=== PATIENT | male | born 1965 | race African-American/Black ===

== ENCOUNTER 2017-08-06 07:41 | Day surgery (SDC) | payer OTHER ==
[2017-08-06] VITALS (8 sets, daily range): BP systolic 109–139; BP diastolic 65–92; PULSE 60–74; RESP 17–20; Ht 175.3 cm; Wt 108.0 kg
[~2017-08-06] VITALS: Ht 175.3 cm; Wt 108.0 kg
[~2017-08-06 07:41] MED LIST: CEFAZOLIN 1 GM INJ ONE; CEFAZOLIN 2 GM/50 ML (PMX) 50 ML IVPB SCH; SOD CHLORIDE 0.9% 1,000 ML IV SCH
[2017-08-06] MEDS ORDERED: OXYC30TA PO (08:47)
[2017-08-06] MEDS ORDERED: IBUP400T22 PO (08:47)
[2017-08-06] MEDS ORDERED: BUPIVACAINE 0.25% (MPF) 30 ML INJ ONE (09:14)
[2017-08-06] MEDS ORDERED: ROCURONIUM 50 MG INJ ONE (10:08)
[2017-08-06] MEDS ORDERED: LIDOCAINE 2% (SDV) 5 ML INJ ONE (10:08)
[2017-08-06] MEDS ORDERED: MIDAZOLAM 1 MG/ML 2 ML INJ ONE (10:08)
[2017-08-06] MEDS ORDERED: FENTAnyl 50 MCG/ML VIAL ONE (10:08)
[2017-08-06] MEDS ORDERED: PROPOFOL 20 ML ONE (10:08)
[2017-08-06] MEDS ORDERED: SUCCINYLCHOLINE CHLORIDE 100 MG/5 ML SYG IV ONE (10:08)
[2017-08-06] MEDS ORDERED: POLYMYXIN/BACITRACIN 1L IRRIG ONE (10:18)
[2017-08-06] MEDS ORDERED: DEXAMETHASONE 4 MG/ML 1 ML INJ ONE (10:25)
[2017-08-06] MEDS ORDERED: ONDANSETRON 4 MG INJ ONE (10:25)
[2017-08-06] MEDS ORDERED: OXYCODONE/ACETAMINOPHEN (5/325) TAB PO PRN ×2 (10:30)
[2017-08-06] MEDS ORDERED: HYDROmorphONE (0.2 MG/ML) 10ML SYG IV PRN (10:30)
[2017-08-06] MEDS ORDERED: ONDANSETRON 4 MG INJ IV PRN (10:30)
[2017-08-06] MEDS ORDERED: MEPERIDINE 25 MG INJ IV PRN (10:30)
[2017-08-06] MEDS ORDERED: FENTAnyl 50 MCG/ML VIAL IV PRN (10:30)
[2017-08-06] MEDS ORDERED: DIPHENHYDRAMINE 50 MG INJ IV PRN (10:30)
[2017-08-06] MEDS ORDERED: POLYMYXIN/BACITRACIN 1L IRRIG IRR ONE (10:35)
[2017-08-06] MEDS ORDERED: BUPIVACAINE 0.25% (MPF) 30 ML INJ INJ ONE (10:35)
[2017-08-06] MEDS ORDERED: KETOROLAC 30 MG INJ ONE (11:01)
--- NOTE | 2017-08-06 11:10 | OPR ---
Date/Time of Note Date/Time of Note DATE: 08/06/17 TIME: 11:07 Operative Report Procedure Date: Aug 06, 2017 Preoperative Diagnosis right inguinal hernia Postoperative Diagnosis same Operation Performed 1. open right incarcerated inguinal hernia repair with ultrapro large hernia system mesh 2. therapeutic injection of subcutaneous marcaine cpt code 29689 Surgeon: Shemar WILEY Anesthesia Type: general Estimated Blood Loss: 0 - 10 ml's Specimen: none Grafts/Implants ultrapro hernia system mesh large Complications: no Indications Large right incarcerated inguinal hernia. He requests surgical repair. Risks alternatives benefits and percent were discussed the patient. Patient expresses understanding and consents to the operation. Procedure Description To the OR and prepped and draped in usual sterile fashion. Surgical timeout is performed. IV antibiotics given. Right inguinal oblique incision is made with a 10 blade. Dissection cautery was carried onto the extremity fascia. This is open with a 15 blade. The external oblique fascia incision is extended medially inferiorly lateral superiorly with Metzenbaum scissors. Cord structures identified and encircled with a Estelita drain. Incarcerated indirect hernia is reduced manually. This hernia defect is then bolstered with the disc portion of the ultra pro hernia system mesh by running a 0 Prolene suture from the pubic tubercle along the shelving edge of the inguinal ligament. The disc portion is secured to the internal oblique superiorly with interrupted 3-0 Vicryl. Onlay mesh is secured in similar fashion with a running 0 Prolene from the pubic tubercle along the shelving edge of the inguinal ligament. Straps are created and reapproximated around the cord structures to recreate the inguinal ring with interrupted 0 Prolene. The onlay mesh is secured to the internal oblique with interrupted 3-0 Vicryl. The external oblique fascia is closed with running 3-0 Vicryl. Leilani's fascia is closed with interrupted 3-0 Vicryl. Skin is closed using skin eugenie. Subcutaneous Marcaine is injected throughout the incision. Dry dressings were applied. Shemar WILEY Aug 06, 2017 11:10
[2017-08-06] MEDS ORDERED: HYDROCODONE/APAP (5/325) TAB PO ONE (11:30)
[2017-08-06] MEDS ORDERED: NEOSTIGMINE 3 MG/3 ML SYRINGE ONE (13:49)
[2017-08-06] MEDS ORDERED: GLYCOPYRROLATE 0.4 MG INJ ONE (13:49)
== END 2017-08-06 12:57 | disposition home or self-care (01) ==
LOC: SDS 07:41
PROVIDERS: ATTEND Surgery
DX: K40.30 Unilateral inguinal hernia, with obstruction, without gangrene, not specified as recurrent (principal); E66.9 Obesity, unspecified; Z68.35 Body mass index [BMI] 35.0-35.9, adult
CPT/HCPCS: 49507; C1781; J0690; J1100; J1885; J2175; J2250; J2405; J2710; J3010; Z7512; Z7610; J7999